=== PATIENT | female | born 1970 ===

== ENCOUNTER 2018-05-26 18:43 | Inpatient (IN) | payer OTHER, SELFPAY ==
[2018-05-26] VITALS (17 sets, daily range): BP systolic 110–125; BP diastolic 65–77; PULSE 97–110; RESP 16; TEMP 37–37.3; O2SAT 97–100
--- NOTE | 2018-05-26 19:21 | ED.GENADUL_ITS ---
Discharge Plan Disposition Patient Disposition: [facility] INPATIENT Condition: Good Discharge Details Chief Complaint: Abd Prob Clinical Impression: Appendicitis, acute Reason For Visit: ACUTE APPENDICITIS Admit Date/Time: 05/27/18 00:14 Admit Provider: Dustin Chapa III Attending Provider: Dustin Chapa III Primary Care Provider: Licha,Local ED Provider: Cleveland Beltran Discharge Data Discharge Date/Time-TO BE ENTERED AT DEPARTURE: 05/27/18 02:36 Medical Decision Making <Dawit Berkowitz DO - Last Filed: 05/27/18 09:27> This is a 48-year-old female who presents for mild right lower quadrant pain for the last week. It is slowly gotten worse however she is eating and drinking well. She has had no diarrhea or vomiting, no systemic symptoms of fever or chills. Physical exam demonstrates minimal right lower quadrant tenderness. She is currently up visiting and not her normal home and certainly away from her regular care circles. Her obstetrics route rider supervisor did perform a exam within the last 4 days which demonstrated a benign vaginal exam and a negative urinalysis at that time down in [place]. With her continued and slightly worsening pain it was recommended that she come to the ER for further evaluation to rule out appendicitis. Physical exam is unalarming. Vital signs are reassuring aside from mild tachycardia which on reassessment demonstrate a heart rate in the 80s. Patient is requesting further imaging workup and I do think this is reasonable. We will get a CT scan to evaluate for any acute process. I feel her symptoms may be musculoskeletal in origin versus mild diverticulitis or very mild early appendicitis. We will get a urinalysis to evaluate for any acute signs of UTI. With no vaginal discharge or lower pelvic symptoms as well as the recent visit by her obstetrics route rider supervisor I do not think additional pelvic imaging is indicated at this time as her signs and symptoms are clinically inconsistent with ovarian torsion or an ovarian or uterine pathology. The case will be signed out to my colleague Dr. Beltran pending CT imaging results. HPI <Dawit Berkowitz DO - Last Filed: 05/27/18 09:27> General Date/Time Provider Initiated Documentation: 05/26/18 19:02 . HPI Narrative: This is a 48-year-old female who is visiting from [place], who presents today for evaluation of right lower quadrant abdominal pain. Patient states that for the last week she has had very mild right lower quadrant abdominal pain. It is sharp in nature and radiates slightly to the right upper quadrant. She has been able to eat and drink well without any associated nausea, vomiting, or diarrhea. She does have a mild achy sensation in her right upper quadrant. Symptoms are not worsened with food. Improved by nothing. She did see her obstetrics route rider supervisor 3 days ago who performed a bimanual and vaginal exam which were benign. Urinalysis at that time was also benign. Patient did have continuing worsening but very mild pain over the next few days, and her obstetrics route rider supervisor recommended she come in for further evaluation here in the ED. Patient denies any vaginal discharge, dysuria, hematuria, she does admit to some very mild urinary suprapubic pressure. She denies any other associated symptoms or complaints. Patient denies any previous abdominal surgeries, pertinent family history, IV or illicit drug use. Related Data Home Medications Medication Instructions Recorded Confirmed Unknown [No Known Home Meds] 05/26/18 05/26/18 Allergies Allergy/AdvReac Type Severity Reaction Status Date / Time No Known Allergies Allergy Unverified 05/26/18 19:00 General Stated Complaint: Abd Prob BRYAN: 3 Review of Systems <Dawit Berkowitz DO - Last Filed: 05/27/18 09:27> Review of Systems All systems reviewed & are unremarkable except as noted in HPI and below PFSH <Dawit Berkowitz DO - Last Filed: 05/27/18 09:27> Social History Smoking/Tobacco Use Status: Never Exam <Dawit Berkowitz DO - Last Filed: 05/27/18 09:27> Narrative Exam Narrative: 1.Const: Well-nourished, Well-developed, appearing stated age 2.Eyes: PERRL, no conjunctival injection, and symmetrical lids. 3.ENT: Atraumatic external nose and ears. Moist MM. Neck: Symmetric, trachea midline, No thyromegaly. 4.CVS: +S1/S2, No murmurs or gallops. Peripheral pulses 2+ and equal in all extremities. Brisk capillary refill in all extremities. 5.RESP: Unlabored respiratory effort. Clear to auscultation bilaterally. No wheezes rales or rhonchi 6.GI: Soft, Nondistended, No hepatosplenomegaly. No guarding or rebound. Mild pain in the right lower quadrant. She is negative Patel sign, negative obturator and psoas sign. No flank or CVA tenderness 7.MSK: Normocephalic/Atraumatic, Extremities w/o deformity or ttp No cyanosis or clubbing, Normal movement of all extremities 8.Skin: Warm, Dry. No rashes or lesions. 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 Sensation grossly intact, no focal neurologic deficits. 10.Psych: (AAO) x3. Appropriate mood and affect Course <Dawit Berkowitz DO - Last Filed: 05/27/18 09:27> Vital Signs Temperature 37.0 C 05/26/18 18:57 Pulse 110 H 05/26/18 18:57 Respiratory Rate 16 05/26/18 18:57 Blood Pressure 118/75 05/26/18 18:57 Pulse Oximetry 99 05/26/18 18:57 Temperature 37.0 C 05/26/18 18:57 Temperature Source Temporal Artery Scan 05/26/18 18:57 Pulse 110 H 05/26/18 18:57 Respiratory Rate 16 05/26/18 18:57 Blood Pressure 118/75 05/26/18 18:57 Blood Pressure Position Sitting 05/26/18 18:57 Pulse Oximetry 99 05/26/18 18:57 Oxygen Delivery Method Room Air 05/26/18 18:57 Oxygen Flow Rate 0 05/26/18 18:57 Pain Level 5 05/26/18 18:57 Sign Out <Dawit Berkowitz DO - Last Filed: 05/27/18 09:27> Sign Out Data: Sign Out Comment: pending CT results Last updated by Dawit Berkowitz DO at 05/26/18 20:34 Post-Handoff Eval: Patient signed out to me pending CT scan results. CT shows acute appendicitis without abscess or perforation. Patient made aware of findings. Case discussed with surgeon. Patient to be kept NPO, continue fluids and give dose of Invanz. Dr. Chapa to see.
[2018-05-26 19:37] LABS: Abs Immature Grans 0.02 k/cumm (0.0-0.09); Absolute Basophil Count 0.01 k/cumm (0.0-0.2); Absolute Eosinophil Count 0.13 k/cumm (0.0-0.7); Absolute Lymphocyte Count 1.17 k/cumm (1.2-3.4); Absolute Monocyte Count 0.86 k/cumm (0.11-0.7); Absolute Neutrophil Count 9.91 k/cumm (1.2-6.7); Basophils % 0.1; Eosinophils % 1.1; HCT 36.3 % (36.0-46.0); HGB 12.4 g/dL (12.0-15.5); Immature Grans % 0.2; Lymphocytes % 9.7; Mean Corp. HGB Concentration 34.2 g/dL (32.0-36.0); Mean Corpuscular Hemoglobin 29.6 pg (27.0-33.0); Mean Corpuscular Volume 86.6 fL (80-95); Monocytes % 7.1; Neutrophils % 81.8; Platelet Count 333 x1000/uL (130-400); RBC 4.19 m/cumm (4.00-5.20); RBC Distribution Width 12.3 % (11.7-14.6); White Blood Cell Count 12.11 k/cumm (4.4-10.8)
[2018-05-26] MEDS: Normal Saline 1,000 ML 1000 ML IV (19:55)
--- NOTE | 2018-05-26 19:55 | DI.CT_ITS ---
SYMPTOM/DIAGNOSIS: RLQ AND RUQ PAIN, ? APPENDIX OR GB PATHOLOGY ABDOMEN AND PELVIC CT: The appendix is dilated and shows surrounding inflammation. There is mild small bowel dilatation which may be reactive. There is a trace amount of free fluid. There is no evidence of an abscess or perforation. The bladder, uterus and ovaries are unremarkable. The lung bases are clear. The liver, gallbladder, spleen, pancreas, kidneys and adrenals appear normal. IMPRESSION: Acute appendicitis. Mild small bowel dilatation, likely representing reactive ileus.
[2018-05-26 20:01] LABS: Bilirubin Negative (Negative); Blood Negative (Negative); Clarity Clear; Glucose Negative (Negative); Ketones Negative (Negative); Leukocyte Esterase Negative (Negative); Nitrite Negative (Negative); Specific Gravity 1.015 (1.005-1.025); Urobilinogen 0.2 EU/dL (Up TO 0.2)
[2018-05-26 20:02] LABS: ALT 21 U/L (12-78); AST 9 U/L (15-37); Albumin 3.9 g/dL (3.4-5.0); Alkaline Phosphatase 70 U/L (46-116); Anion Gap 7.2 mmol/L (3-11); BUN 11 mg/dL (7-18); Bilirubin, Total 0.2 mg/dL (0.2-1.0); CO2 29.8 mmol/L (21.0-32.0); CREATININE 0.73 mg/dL (0.55-1.02); Calcium 9.2 mg/dL (8.5-10.1); Chloride 100 mmol/L (98-107); Glucose 95 mg/dL (70-100); Lipase 155 U/L (73-393); Potassium 3.5 mmol/L (3.5-5.1); Sodium 137 mmol/L (136-145); Total Protein 8.4 g/dL (6.4-8.2)
[2018-05-26] MEDS: Omnipaque 350 MG/ML 100 ML BTL IJ (20:53)
--- NOTE | 2018-05-26 21:29 | DI.VRAD_ITS ---
Addendum created by James Madrigal MD on 05/26/2018 9:31:40 PM EST Addendum: THIS REPORT CONTAINS FINDINGS THAT MAY BE CRITICAL TO PATIENT CARE. The findings were verbally communicated via telephone conference with Dr. Beltran at 9:31 PM EST on 05/26/2018. The findings were acknowledged and understood. Initial report created on 05/26/2018 9:28:58 PM EST EXAM: CT Abdomen and Pelvis With Contrast EXAM DATE/TIME: 05/26/2018 8:53 PM CLINICAL HISTORY: 48 years old, female; Pain; Other: Ruq and rlq pain; Patient HX: Rule out appendicitis/gb pathology TECHNIQUE: Axial computed tomography images of the abdomen and pelvis with intravenous contrast. All CT scans at this facility use at least one of these dose optimization techniques: automated exposure control; mA and/or kV adjustment per patient size (includes targeted exams where dose is matched to clinical indication); or iterative reconstruction. Coronal and sagittal reformatted images were created and reviewed. CONTRAST: 100 ml of Omnipaque 350 administered intravenously. COMPARISON: No relevant prior studies available. FINDINGS: The lung bases are clear. The visualized bony structures are unremarkable. There is no liver mass. There is no intrahepatic biliary dilatation. No gallstones are seen within the gallbladder. The pancreas is unremarkable. The spleen is unremarkable. There is no adrenal mass. There is no hydronephrosis. There are no renal calculi. There is no perinephric stranding. There is no renal mass. The ureters are normal in caliber. No calculi are seen along the course of the ureters. The aorta is normal in caliber. The IVC is normal in caliber. There is no retroperitoneal adenopathy. There is no mesenteric adenopathy. The stomach is unremarkable. The proximal small bowel appears normal. There is mild distention of the distal small bowel with fluid which may represent a mild ileus.. Feces is seen throughout the colon. There is no thickening of the wall of the ascending, transverse or descending colons. Within the pelvis: There is dilatation of the appendix measuring up to 17 mm. There is enhancement of the wall. There is moderate periappendiceal fat stranding. Findings are consistent with acute appendicitis. There is no abscess or perforation. There is a scant amount of free fluid within the pelvis. The bladder is unremarkable. The uterus is unremarkable. Small cysts are seen within the left adnexa. There is no inguinal adenopathy. There is no pelvic adenopathy. The rectosigmoid colon is unremarkable. IMPRESSION: 1. Acute appendicitis. No abscess or perforation. 2. Mild distal small bowel distention likely representing reactive ileus. 3. Small amount free fluid is seen within the pelvis. Dictated and Authenticated by: James Madrigal MD. Ordering:KORIN Pastor MD
[2018-05-26] MEDS: Lactated Ringers 1,000 ML 150 ML IV (22:19)
--- NOTE | 2018-05-26 22:59 | HPE_ITS ---
Date of service: 05/26/18 Time of Service: 22:55 Assessment and Plan (1) Acute right lower quadrant pain: Start date: 05/26/18 Start time: 22:58 Current visit: Yes Status: Acute ct scan (2) Leukocytosis (leucocytosis): Start date: 05/26/18 Start time: 22:58 Current visit: Yes Status: Acute start antibiotics (3) Acute appendicitis: Start date: 05/26/18 Start time: 22:58 Current visit: Yes Status: Acute lap rony poss open History of Present Illness Chief Complaint: right lower quadrant pain Narrative: pt pain started on maonday, she went to her obgyn and was cleared for any pathology at the time, driving up to [place] she cont to have pain and her doctor said to get to the ed for poss appy Review of Systems Review of Systems All systems reviewed & are unremarkable except as noted in HPI and below Gastrointestinal Reports as per HPI, Reports abdominal pain and Reports loose stools PFSH Social History Smoking/Tobacco Use Status: Never Meds Home Medications Medication Instructions Recorded Confirmed Type Unknown [No Known Home Meds] 05/26/18 05/26/18 History Allergies Allergy/AdvReac Type Severity Reaction Status Date / Time No Known Allergies Allergy Unverified 05/26/18 19:00 Exam GI Inspection: normal to inspection Palpation: soft and tender Percussion: normal to percussion Auscultation: normal bowel sounds Abdomen image: 1. pain Results Labs : 05/26/18 19:25 05/26/18 19:25 Laboratory Results - last 24 hr 05/26/18 05/26/18 05/26/18 19:25 19:25 19:40 WBC 12.11 H RBC 4.19 Hgb 12.4 Hct 36.3 MCV 86.6 MCH 29.6 MCHC 34.2 RDW 12.3 Plt Count 333 MPV 10.0 Immature Gran % 0.2 Neutrophils % 81.8 Lymphocytes % 9.7 Monocytes % 7.1 Eosinophils % 1.1 Basophils % 0.1 Absolute Neutrophils 9.91 H Absolute Lymphocytes 1.17 L Absolute Monocytes 0.86 H Absolute Eosinophils 0.13 Absolute Basophils 0.01 Sodium 137 Potassium 3.5 Chloride 100 Carbon Dioxide 29.8 Anion Gap 7.2 BUN 11 Creatinine 0.73 Estimated GFR/1.73 m2 >= 60.00 Glucose 95 Calcium 9.2 Total Bilirubin 0.2 AST 9 L ALT 21 Alkaline Phosphatase 70 Total Protein 8.4 H Albumin 3.9 Lipase 155 Urine Color Yellow Urine Clarity Clear Urine pH 8.0 Ur Specific [place] 1.015 Urine Protein Negative Urine Ketones Negative Urine Blood Negative Urine Nitrite Negative Urine Bilirubin Negative Urine Urobilinogen 0.2 Ur Leukocyte Esterase Negative Urine Glucose Negative Last Vital Signs Temp 37.0 C 05/26/18 18:57 Pulse 110 H 05/26/18 18:57 Resp 16 05/26/18 18:57 BP 118/75 05/26/18 18:57 Pulse Ox 99 05/26/18 18:57
[2018-05-27] VITALS (10 sets, daily range): BP systolic 106–127; BP diastolic 55–78; PULSE 74–99; RESP 9–17; TEMP 36.5–37.9; O2SAT 94–100
--- NOTE | 2018-05-27 01:23 | APP_PTH ---
PATIENT: MEHNAZ MOHAN LOC: U#:[id number] AGE/SX: 48/F ROOM: 214 RE05/26/[address]: Dustin Chapa III : 1970 BED: A DIS: 05/29/2018 SPEC #: [id number] RECD: 05/29/18 13:04 STATUS: EVA REStefan #: [id number] PIA: 05/27/18 01:[address]: Dustin Chapa III DEPT: Surgical Specimen RECD BY: Tiffanie Gregg ENTERED: 05/29/18 13:05 SP TYPE: Appendix OTHR DR: No Local Tissues: 1 - APPENDIX NOT INCIDENTAL Procedures: GROSS AND MICRO LEVEL 3 Comments: [id number]
[2018-05-27] MEDS: Lidocaine 1% Multi-Dose 50 ML VIAL (01:34)
--- NOTE | 2018-05-27 01:37 | W.PM.OP ---
Date of service: 05/27/18 Time of Service: 01:37 Operative Note DATE OF PROCEDURE: 05/27/18 PRE-OP DIAGNOSIS: acute appy POST-OP DIAGNOSIS: other (perforated appendix) PROCEDURE: Lap appy SURGEON: Dustin Chapa III ESTIMATED BLOOD LOSS: 15 PATHOLOGY: other Patient was transported to: PACU Patient's condition: stable Indications: acute rlq PAIN AND CT SHOWING ACUTE APPENDICITIS Findings: distended contained perforated appendix Procedure Description: pt brought to the or, placed supine on the operating table gen anesthesia time out done abd preped and draped in sterile fashion local given and infraumbilical incision and fascial incision entering the abd the trocar was inserted and the abd insuflated to 15 mm hg two 5mm ports placed under direct vision in the midline the base was exposed and walked down with graspers at the midway point there was a gush of puss and a clear opening into the lumen of the appendix the remander of the appendix was disected out and the bas identified a maryland disector was used and isolated the base and an endoGIA used to transect it, the artery was seen and a seperate clip was placed on it the meso appendix was transectwd with the endoGIA and the specimen placed in an endocatch bag the abdomen was washed out with 3 liters of saline the ports removed under direct vision the specimnen passed of the field the infraumbilical port was closed with 0 vicryl and monocryl the 5 mm port monocryl and dermabond more local given debreifing done pt spoken to post op
[2018-05-27] MEDS: Acetaminophen 325 MG TAB 650 MG PO (05:29)
[2018-05-27] MEDS: Lactated Ringers 1,000 ML 75 ML IV ×2 (05:50→19:24)
--- NOTE | 2018-05-27 07:29 | PDOC.CMIN ---
- If Service Date Differs Date of service: 05/27/18 Time of Service: 07:29 Care Management Initial Assess REASON FOR HOSPITALIZATION:: Appendicitis. PAST MEDICAL HISTORY/PAST SURGICAL HISTORY:: Leukocytosis. PREVIOUS FUNCTIONAL STATUS/SOCIAL/FAMILY SUPPORTS:: Grecia resides in [place] with her , Richie and their three children. Richie's family live in [place] and the family had been visiting when Grecia was admitted for a laparoscopic appendectomy early this morning. Grecia is independent with her ADLs and transportation and will be returning home to [place] when medically ready. CURRENT FUNCTIONAL STATUS:: Grecia is lying in bed with , Richie, at bedside when CM visits this morning. She is engaged in conversation and makes good eye contact. MD is discussing options for discharge and all agree that she should remain at the hospital overnight and discharge on Tuesday. Grecia reports that her children are having fun on the farm and that it makes sense to stay rather than go home and need to return. Grecia has requested that her medical records be forwarded to Dr. Lopez at [facility]; [address] [place] [address]. CM will see that that happens. Patient reports that she is feeling ok and would like to try oatmeal for breakfast. CM and MD advise her to take food as she is able and not rosado. CM ordered oatmeal from dietary. ADVANCE DIRECTIVES:: None on file at [facility]. Has patient been provided with information about the portal?: Yes Did the patient sign up for the portal?: No CODE STATUS:: Full Code INSURANCE COVERAGE / FINANCIAL ISSUES:: [facility] CURRENT HOME/COMMUNITY SERVICES/EQUIPMENT:: No current home or community services. No equipment. PRIMARY CARE PHYSICIAN:: No Local. Patient's PCP in [place] is Dr. Lopez. POTENTIAL DISCHARGE NEEDS:: Follow up appointment with PCP and/or surgical services. PATIENT/FAMILY EDUCATION NEEDS:: Discharge education, any limitations, and follow up plan of care. Ask Me Three discussion. ANTICIPATED BARRIERS TO DISCHARGE:: No anticipated barriers to discharge. TRANSPORTATION:: Grecia will transport via private vehicle with her , Richie. PLAN:: Grecia will discharge home when medically ready per MD. Anticipate patient will discharge with no services and follow up with her PCP. CM will continue to offer support to patient and care team regarding discharge planning and disposition.
--- NOTE | 2018-05-27 07:34 | INITIAL_ITS ---
- If Service Date Differs Date of service: 05/27/18 Time of Service: 07:29 Care Management Initial Assess REASON FOR HOSPITALIZATION:: Appendicitis. PAST MEDICAL HISTORY/PAST SURGICAL HISTORY:: Leukocytosis. PREVIOUS FUNCTIONAL STATUS/SOCIAL/FAMILY SUPPORTS:: Grecia resides in [place] with her , Richie and their three children. Richie's family live in [place] and the family had been visiting when Grecia was admitted for a laparoscopic appendectomy early this morning. Grecia is independent with her ADLs and transportation and will be returning home to [place] when medically ready. CURRENT FUNCTIONAL STATUS:: Grecia is lying in bed with , Richie, at bedside when CM visits this morning. She is engaged in conversation and makes good eye contact. MD is discussing options for discharge and all agree that she should remain at the hospital overnight and discharge on Tuesday. Grecia reports that her children are having fun on the farm and that it makes sense to stay rather than go home and need to return. Grecia has requested that her medical records be forwarded to Dr. Lopez at [facility]; [address] [place] [address]. CM will see that that happens. Patient reports that she is feeling ok and would like to try oatmeal for breakfast. CM and MD advise her to take food as she is able and not rosado. CM ordered oatmeal from dietary. ADVANCE DIRECTIVES:: None on file at [facility]. Has patient been provided with information about the portal?: Yes Did the patient sign up for the portal?: No CODE STATUS:: Full Code INSURANCE COVERAGE / FINANCIAL ISSUES:: [facility]. CURRENT HOME/COMMUNITY SERVICES/EQUIPMENT:: No current home or community services. No equipment. PRIMARY CARE PHYSICIAN:: No Local. Patient's PCP in [place] is Dr. Lopez. POTENTIAL DISCHARGE NEEDS:: Follow up appointment with PCP and/or surgical services. PATIENT/FAMILY EDUCATION NEEDS:: Discharge education, any limitations, and follow up plan of care. Ask Me Three discussion. ANTICIPATED BARRIERS TO DISCHARGE:: No anticipated barriers to discharge. TRANSPORTATION:: Grecia will transport via private vehicle with her , Richie. PLAN:: Grecia will discharge home when medically ready per MD. Anticipate patient will discharge with no services and follow up with her PCP. CM will continue to offer support to patient and care team regarding discharge planning and disposition.
--- NOTE | 2018-05-27 07:57 | PGE_ITS ---
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 and will poss dc this afternoon pt wanted records for doctors [place] Subjective Patient reports: no new complaints and pain is less Interval history since last seen: sp lap appy for contained perforated appendicitis Exam Const General: cooperative and healthy appearing Nutritional Appearance: well nourished GI Inspection: normal to inspection and incision Palpation: soft Percussion: normal to percussion Auscultation: hypoactive bowel sounds Other: pt incision CDI min distention pt has not gotten out of bed yet and has not voided yet Objective Objective Clinical Data: Abnormal lab results 05/26/18 05/26/18 Range/Units 19:25 19:25 WBC 12.11 H (4.4-10.8) k/cumm Absolute Neutrophils 9.91 H (1.2-6.7) k/cumm Absolute Lymphocytes 1.17 L (1.2-3.4) k/cumm Absolute Monocytes 0.86 H (0.11-0.7) k/cumm AST 9 L (15-37) U/L Total Protein 8.4 H (6.4-8.2) g/dL Vital Signs Temperature 36.9 C 05/27/18 02:46 Temperature Source Temporal Artery Scan 05/26/18 18:57 Pulse 93 H 05/27/18 02:46 Pulse Rhythm Regular 05/27/18 02:46 Respiratory Rate 17 05/27/18 02:46 Respiratory Effort Non-Labored 05/27/18 02:46 Respiratory Depth Normal 05/27/18 02:46 Respiratory Pattern Normal 05/27/18 02:46 Blood Pressure 107/55 L 05/27/18 02:46 Blood Pressure Mean 80 05/26/18 23:30 Blood Pressure Position Sitting 05/26/18 18:57 Pulse Oximetry 95 05/27/18 02:46 Respiratory End-tidal CO2 36 05/27/18 02:30 Oxygen Delivery Method Room Air 05/27/18 02:46 Oxygen Flow Rate 0 05/27/18 02:46 Pain Level 5 05/27/18 05:29 Intake & Output 05/26/18 05/26/18 05/27/18 11:59 23:59 11:59 Intake Total 1300 / 1300 Balance 1300 / 1300 Weight 59.874 kg 59.874 kg Intake: IV 1000 / 1000 Oral 300 / 300 Other: Emesis Description None Laboratory Results WBC 12.11 k/cumm (4.4-10.8) H 05/26/18 19:25 RBC 4.19 m/cumm (4.00-5.20) 05/26/18 19:25 Hgb 12.4 g/dL (12.0-15.5) 05/26/18 19:25 Hct 36.3 % (36.0-46.0) 05/26/18 19:25 MCV 86.6 fL (80-95) 05/26/18 19:25 MCH 29.6 pg (27.0-33.0) 05/26/18 19:25 MCHC 34.2 g/dL (32.0-36.0) 05/26/18 19:25 RDW 12.3 % (11.7-14.6) 05/26/18 19:25 Plt Count 333 x1000/uL (130-400) 05/26/18 19:25 MPV 10.0 fL (8.0-11.0) 05/26/18 19:25 Immature Gran % 0.2 05/26/18 19:25 Neutrophils % 81.8 05/26/18 19:25 Lymphocytes % 9.7 05/26/18 19:25 Monocytes % 7.1 05/26/18 19:25 Eosinophils % 1.1 05/26/18 19:25 Basophils % 0.1 05/26/18 19:25 Absolute Neutrophils 9.91 k/cumm (1.2-6.7) H 05/26/18 19:25 Absolute Lymphocytes 1.17 k/cumm (1.2-3.4) L 05/26/18 19:25 Absolute Monocytes 0.86 k/cumm (0.11-0.7) H 05/26/18 19:25 Absolute Eosinophils 0.13 k/cumm (0.0-0.7) 05/26/18 19:25 Absolute Basophils 0.01 k/cumm (0.0-0.2) 05/26/18 19:25 Sodium 137 mmol/L (136-145) 05/26/18 19:25 Potassium 3.5 mmol/L (3.5-5.1) 05/26/18 19:25 Chloride 100 mmol/L (98-107) 05/26/18 19:25 Carbon Dioxide 29.8 mmol/L (21.0-32.0) 05/26/18 19:25 Anion Gap 7.2 mmol/L (3-11) 05/26/18 19:25 BUN 11 mg/dL (7-18) 05/26/18 19:25 Creatinine 0.73 mg/dL (0.55-1.02) 05/26/18 19:25 Estimated GFR/1.73 m2 >= 60.00 (mL/min/1.73m2) 05/26/18 19:25 Glucose 95 mg/dL (70-100) 05/26/18 19:25 Calcium 9.2 mg/dL (8.5-10.1) 05/26/18 19:25 Total Bilirubin 0.2 mg/dL (0.2-1.0) 05/26/18 19:25 AST 9 U/L (15-37) L 05/26/18 19:25 ALT 21 U/L (12-78) 05/26/18 19:25 Alkaline Phosphatase 70 U/L (46-116) 05/26/18 19:25 Total Protein 8.4 g/dL (6.4-8.2) H 05/26/18 19:25 Albumin 3.9 g/dL (3.4-5.0) 05/26/18 19:25 Lipase 155 U/L (73-393) 05/26/18 19:25 Urine Color Yellow (Yellow) 05/26/18 19:40 Urine Clarity Clear 05/26/18 19:40 Urine pH 8.0 (5-8) 05/26/18 19:40 Ur Specific [place] 1.015 (1.005-1.025) 05/26/18 19:40 Urine Protein Negative mg/dL (Negative) 05/26/18 19:40 Urine Ketones Negative mg/dL (Negative) 05/26/18 19:40 Urine Blood Negative (Negative) 05/26/18 19:40 Urine Nitrite Negative (Negative) 05/26/18 19:40 Urine Bilirubin Negative (Negative) 05/26/18 19:40 Urine Urobilinogen 0.2 EU/dL (Up TO 0.2) 05/26/18 19:40 Ur Leukocyte Esterase Negative (Negative) 05/26/18 19:40 Urine Glucose Negative mg/dL (Negative) 05/26/18 19:40
[2018-05-27] MEDS: Ketorolac 15 MG/ML VIAL IVP ×2 (10:13→21:16)
[2018-05-27] MEDS: Normal Saline Flush 10 ML SYR IVP ×2 (10:13→21:13)
[2018-05-28 03:26] VITALS: BP 103/70; PULSE 89; RESP 18; TEMP 37.9; O2SAT 99
[2018-05-28 04:49] VITALS: TEMP 37.5
--- NOTE | 2018-05-28 07:42 | W.PM.DS.N ---
Date of service: 05/28/18 Time of Service: 07:42 DS: Diagnosis Discharge Diagnosis (1) Acute appendicitis: Status: Acute (2) Perforated appendicitis: Status: Acute Discharge Plan Disposition Patient Disposition: HOME Condition: Stable Discharge Details Chief Complaint: Abd Prob Clinical Impression: Appendicitis, acute Reason For Visit: ACUTE APPENDICITIS Admit Date/Time: 05/27/18 00:14 Admit Provider: Dustin Chapa III Attending Provider: Dustin Chapa III Primary Care Provider: Licha,Local ED Provider: Cleveland Beltran [facility] Course Hospital Course: pt presented 5 days after her pain started. Her ct and physical exam showed acute appendicitis. She was taken to the or and a contained perforation was found and a successful lap appy was preformed. the pt recoverd for 24 hours in the hospital with min pain she tolerated a small diet. she will fu in ct for postop Home Meds and New Rx's Prescriptions: No Action No Known Home Meds RF: 0 Discharge Instructions Referrals: Cony Pena PA [PHYSICIANS OUTREACH CONSULTANT] - 06/05/18 8:00 am Activity:: Activity as Tolerated Equipment/Supplies:: none Diet:: As Tolerated DS: Summary Status at Discharge Functional status at discharge: independent ambulation Overall status at discharge: patient is back to baseline Time Spent with Patient Greater than 30 minutes Exam GI Inspection: normal to inspection and distended (improved) Palpation: soft Percussion: normal to percussion Auscultation: normal bowel sounds DS: Data Vitals/I&O Vitals and I&O: Vital Signs Temperature 37.5 C 05/28/18 04:49 Temperature Source Tympanic 05/28/18 04:49 Pulse 89 05/28/18 03:26 Pulse Rhythm Regular 05/27/18 21:08 Respiratory Rate 18 05/28/18 03:26 Respiratory Effort Non-Labored 05/27/18 21:08 Respiratory Depth Normal 05/27/18 21:08 Respiratory Pattern Normal 05/27/18 21:08 Blood Pressure 103/70 05/28/18 03:26 Blood Pressure Mean 80 05/26/18 23:30 Blood Pressure Position Sitting 05/26/18 18:57 Pulse Oximetry 99 05/28/18 03:26 Respiratory End-tidal CO2 36 05/27/18 02:30 Oxygen Delivery Method Room Air 05/28/18 03:26 Oxygen Flow Rate 0 05/28/18 03:26 Pain Level 4 05/28/18 03:26 Intake & Output 05/27/18 05/27/18 05/28/18 11:59 23:59 11:59 Intake Total 1330 / 3810 2480 / 3810 250 / 250 Balance 1330 / 3810 2480 / 3810 250 / 250 Weight 59.874 kg Intake: IV 1030 / 3270 2240 / 3270 Oral 300 / 540 240 / 540 250 / 250 Other: Urine Appearance Clear Clear Comment Void x 1 in toilet pt gets up to void AD RASTA. Emesis Description None Voiding Methods Toilet Toilet [facility] Medical History Acute appendicitis (Acute) Leukocytosis (leucocytosis) (Acute) Acute right lower quadrant pain (Acute) Social History Smoking/Tobacco Use Status: Never
--- NOTE | 2018-05-28 07:49 | DSE_ITS ---
Date of service: 05/28/18 Time of Service: 07:42 DS: Diagnosis Discharge Diagnosis (1) Acute appendicitis: Status: Acute (2) Perforated appendicitis: Status: Acute Discharge Plan Disposition Patient Disposition: HOME Condition: Stable Discharge Details Chief Complaint: Abd Prob Clinical Impression: Appendicitis, acute Reason For Visit: ACUTE APPENDICITIS Admit Date/Time: 05/27/18 00:14 Admit Provider: Dustin Chapa III Attending Provider: Dustin Chapa III Primary Care Provider: Licha,Local ED Provider: Cleveland Beltran [facility] Course Hospital Course: pt presented 5 days after her pain started. Her ct and physical exam showed acute appendicitis. She was taken to the or and a contained perforation was found and a successful lap appy was preformed. the pt recoverd for 24 hours in the hospital with min pain she tolerated a small diet. she will fu in ct for postop Home Meds and New Rx's Prescriptions: No Action No Known Home Meds RF: 0 Discharge Instructions Referrals: Cony Pena PA [PHYSICIANS MANAGER FORMS] - 06/05/18 8:00 am Activity:: Activity as Tolerated Equipment/Supplies:: none Diet:: As Tolerated DS: Summary Status at Discharge Functional status at discharge: independent ambulation Overall status at discharge: patient is back to baseline Time Spent with Patient Greater than 30 minutes Exam GI Inspection: normal to inspection and distended (improved) Palpation: soft Percussion: normal to percussion Auscultation: normal bowel sounds DS: Data Vitals/I&O Vitals and I&O: Vital Signs Temperature 37.5 C 05/28/18 04:49 Temperature Source Tympanic 05/28/18 04:49 Pulse 89 05/28/18 03:26 Pulse Rhythm Regular 05/27/18 21:08 Respiratory Rate 18 05/28/18 03:26 Respiratory Effort Non-Labored 05/27/18 21:08 Respiratory Depth Normal 05/27/18 21:08 Respiratory Pattern Normal 05/27/18 21:08 Blood Pressure 103/70 05/28/18 03:26 Blood Pressure Mean 80 05/26/18 23:30 Blood Pressure Position Sitting 05/26/18 18:57 Pulse Oximetry 99 05/28/18 03:26 Respiratory End-tidal CO2 36 05/27/18 02:30 Oxygen Delivery Method Room Air 05/28/18 03:26 Oxygen Flow Rate 0 05/28/18 03:26 Pain Level 4 05/28/18 03:26 Intake & Output 05/27/18 05/27/18 05/28/18 11:59 23:59 11:59 Intake Total 1330 / 3810 2480 / 3810 250 / 250 Balance 1330 / 3810 2480 / 3810 250 / 250 Weight 59.874 kg Intake: IV 1030 / 3270 2240 / 3270 Oral 300 / 540 240 / 540 250 / 250 Other: Urine Appearance Clear Clear Comment Void x 1 in toilet pt gets up to void AD RASTA. Emesis Description None Voiding Methods Toilet Toilet [facility] Medical History Acute appendicitis (Acute) Leukocytosis (leucocytosis) (Acute) Acute right lower quadrant pain (Acute) Social History Smoking/Tobacco Use Status: Never
[2018-05-28 07:51] VITALS: BP 121/77; PULSE 101; RESP 18; TEMP 37.4; O2SAT 99
--- NOTE | 2018-05-28 08:05 | PGE_ITS ---
Date of Service Date of service: 05/28/18 Time of Service: 08:01 Assessment and Plan (1) Perforated appendicitis: Start date: 05/28/18 Start time: 08:03 Current visit: Yes Status: Acute she is progressing slowly but is appropriate she paulino a small diet pain is improved but still present spoke to he about poss abscess developing present patient feels additional day will help and agree Subjective Patient reports: pain is less Interval history since last seen: slowly improving Exam GI Inspection: normal to inspection and distended Palpation: soft Percussion: normal to percussion Auscultation: normal bowel sounds Objective Objective Clinical Data: Vital Signs Temperature 37.4 C 05/28/18 07:51 Temperature Source Tympanic 05/28/18 07:51 Pulse 101 H 05/28/18 07:51 Pulse Rhythm Regular 05/27/18 21:08 Respiratory Rate 18 05/28/18 07:51 Respiratory Effort Non-Labored 05/27/18 21:08 Respiratory Depth Normal 05/27/18 21:08 Respiratory Pattern Normal 05/27/18 21:08 Blood Pressure 121/77 05/28/18 07:51 Blood Pressure Mean 80 05/26/18 23:30 Blood Pressure Position Sitting 05/26/18 18:57 Pulse Oximetry 99 05/28/18 07:51 Respiratory End-tidal CO2 36 05/27/18 02:30 Oxygen Delivery Method Room Air 05/28/18 07:51 Oxygen Flow Rate 0 05/28/18 07:51 Pain Level 4 05/28/18 07:51 Comment 05/28/18 07:51 Intake & Output 05/27/18 05/27/18 05/28/18 11:59 23:59 11:59 Intake Total 1330 / 3810 2480 / 3810 250 / 250 Balance 1330 / 3810 2480 / 3810 250 / 250 Weight 59.874 kg Intake: IV 1030 / 3270 2240 / 3270 Oral 300 / 540 240 / 540 250 / 250 Other: Urine Appearance Clear Clear Comment Void x 1 in toilet pt gets up to void AD RASTA. Emesis Description None Voiding Methods Toilet Toilet Laboratory Results WBC 12.11 k/cumm (4.4-10.8) H 05/26/18 19:25 RBC 4.19 m/cumm (4.00-5.20) 05/26/18 19:25 Hgb 12.4 g/dL (12.0-15.5) 05/26/18 19:25 Hct 36.3 % (36.0-46.0) 05/26/18 19:25 MCV 86.6 fL (80-95) 05/26/18 19:25 MCH 29.6 pg (27.0-33.0) 05/26/18 19:25 MCHC 34.2 g/dL (32.0-36.0) 05/26/18 19:25 RDW 12.3 % (11.7-14.6) 05/26/18 19:25 Plt Count 333 x1000/uL (130-400) 05/26/18 19:25 MPV 10.0 fL (8.0-11.0) 05/26/18 19:25 Immature Gran % 0.2 05/26/18 19:25 Neutrophils % 81.8 05/26/18 19:25 Lymphocytes % 9.7 05/26/18 19:25 Monocytes % 7.1 05/26/18 19:25 Eosinophils % 1.1 05/26/18 19:25 Basophils % 0.1 05/26/18 19:25 Absolute Neutrophils 9.91 k/cumm (1.2-6.7) H 05/26/18 19:25 Absolute Lymphocytes 1.17 k/cumm (1.2-3.4) L 05/26/18 19:25 Absolute Monocytes 0.86 k/cumm (0.11-0.7) H 05/26/18 19:25 Absolute Eosinophils 0.13 k/cumm (0.0-0.7) 05/26/18 19:25 Absolute Basophils 0.01 k/cumm (0.0-0.2) 05/26/18 19:25 Sodium 137 mmol/L (136-145) 05/26/18 19:25 Potassium 3.5 mmol/L (3.5-5.1) 05/26/18 19:25 Chloride 100 mmol/L (98-107) 05/26/18 19:25 Carbon Dioxide 29.8 mmol/L (21.0-32.0) 05/26/18 19:25 Anion Gap 7.2 mmol/L (3-11) 05/26/18 19:25 BUN 11 mg/dL (7-18) 05/26/18 19:25 Creatinine 0.73 mg/dL (0.55-1.02) 05/26/18 19:25 Estimated GFR/1.73 m2 >= 60.00 (mL/min/1.73m2) 05/26/18 19:25 Glucose 95 mg/dL (70-100) 05/26/18 19:25 Calcium 9.2 mg/dL (8.5-10.1) 05/26/18 19:25 Total Bilirubin 0.2 mg/dL (0.2-1.0) 05/26/18 19:25 AST 9 U/L (15-37) L 05/26/18 19:25 ALT 21 U/L (12-78) 05/26/18 19:25 Alkaline Phosphatase 70 U/L (46-116) 05/26/18 19:25 Total Protein 8.4 g/dL (6.4-8.2) H 05/26/18 19:25 Albumin 3.9 g/dL (3.4-5.0) 05/26/18 19:25 Lipase 155 U/L (73-393) 05/26/18 19:25 Urine Color Yellow (Yellow) 05/26/18 19:40 Urine Clarity Clear 05/26/18 19:40 Urine pH 8.0 (5-8) 05/26/18 19:40 Ur Specific [place] 1.015 (1.005-1.025) 05/26/18 19:40 Urine Protein Negative mg/dL (Negative) 05/26/18 19:40 Urine Ketones Negative mg/dL (Negative) 05/26/18 19:40 Urine Blood Negative (Negative) 05/26/18 19:40 Urine Nitrite Negative (Negative) 05/26/18 19:40 Urine Bilirubin Negative (Negative) 05/26/18 19:40 Urine Urobilinogen 0.2 EU/dL (Up TO 0.2) 05/26/18 19:40 Ur Leukocyte Esterase Negative (Negative) 05/26/18 19:40 Urine Glucose Negative mg/dL (Negative) 05/26/18 19:40
--- NOTE | 2018-05-28 08:51 | PDOC.CMPRO ---
- If Service Date Differs Date of service: 05/28/18 Time of Service: 08:51 Care Management Progress Note S/O: Grecia is lying in bed when CM visits this morning. She is engaged in conversation and makes eye contact. Grecia's is at bedside and has just stepped out for coffee. Anticipated patient would be discharging home today, however Grecia reports continuous pain and per MD note, there is a possibility of abcess development. Grecia is tolerating a small diet well and requests pain medication. RN Tomasa aware. Grecia reports that she is ok staying another day and that her mother is coming to [place] from [place] to bring her children home should she need to stay at [facility] much longer. She is ok with the proposition of staying, reporting that there is no reason for her to return home at this point as she is not able to help out or do anything. A: 48 year old female admitted for a lap appy on 05/27/18. P: Grecia will discharge when medically ready per MD. Anticipate patient will discharge with no services and follow up with her PCP. CM will fax Grecia's medical records to her PCP in [place] per her request. (Dr. Lopez, [facility], [address] [place] [address]). Grecia will transport via private vehicle with her , Richie. CM will continue to offer support to patient, family, and care team regarding discharge planning and disposition.
--- NOTE | 2018-05-28 08:57 | CMPROGNOTE_ITS ---
- If Service Date Differs Date of service: 05/28/18 Time of Service: 08:51 Care Management Progress Note S/O: Grecia is lying in bed when CM visits this morning. She is engaged in conversation and makes eye contact. Grecia's is at bedside and has just stepped out for coffee. Anticipated patient would be discharging home today, however Grecia reports continuous pain and per MD note, there is a possibility of abcess development. Grecia is tolerating a small diet well and requests pain medication. RN Tomasa aware. Grecia reports that she is ok staying another day and that her mother is coming to [place] from [place] to bring her children home should she need to stay at [facility] much longer. She is ok with the proposition of staying, reporting that there is no reason for her to return home at this point as she is not able to help out or do anything. A: 48 year old female admitted for a lap appy on 05/27/18. P: Grecia will discharge when medically ready per MD. Anticipate patient will discharge with no services and follow up with her PCP. CM will fax Grecia's medical records to her PCP in [place] per her request. (Dr. Lopez, [facility], [address] [place] [address]). Grecia will transport via private vehicle with her , Richie. CM will continue to offer support to patient, family, and care team regarding discharge planning and disposition.
[2018-05-28] MEDS: Ketorolac 15 MG/ML VIAL IVP ×2 (09:07→15:54)
[2018-05-28] MEDS: Lactated Ringers 1,000 ML 75 ML IV ×2 (09:08→21:32)
[2018-05-28] MEDS: Normal Saline Flush 10 ML SYR IVP ×2 (09:08→15:55)
[2018-05-28 11:07] VITALS: BP 106/68; PULSE 94; RESP 20; TEMP 37.4; O2SAT 97
[2018-05-28] MEDS: Acetaminophen 325 MG TAB 650 MG PO ×2 (13:00→19:47)
[2018-05-28 15:53] VITALS: BP 125/88; PULSE 95; RESP 22; TEMP 36.2; O2SAT 96
[2018-05-28 19:55] VITALS: BP 107/69; PULSE 91; RESP 16; TEMP 37.5; O2SAT 99
[2018-05-29] MEDS: Ketorolac 15 MG/ML VIAL IVP (00:08)
[2018-05-29 00:13] VITALS: BP 103/68; PULSE 91; RESP 16; TEMP 37.3; O2SAT 98
[2018-05-29 07:45] VITALS: BP 118/74; PULSE 92; RESP 20; TEMP 38; O2SAT 99
[2018-05-29 08:05] VITALS: TEMP 38
[2018-05-29] MEDS: Acetaminophen 325 MG TAB 650 MG PO (08:05)
[2018-05-29 10:04] VITALS: TEMP 36.7
--- NOTE | 2018-05-29 11:14 | PDOC.CMDIS ---
- If Service Date Differs Date of service: 05/29/18 Time of Service: 11:14 LACE Index Scoring Tool - Questions: Length of Stay (in days): 2 Acuity (Admit via E.D.?): Yes E.D. Visits: 1 - Answers: Total Score: 6 Risk of Readmission: Low Risk Care Management Discharge Reason for Hospitalization: Appendicitis. Discharge Plan: Grecia will return home today with no services. She will F/U with PCP and plan of care as prescribed. Grecia's Richie to transport her. Patient/Family Education Needs: Review DC instructions, any limitations, and discuss 'Ask Me Three'
--- NOTE | 2018-05-29 14:21 | DSE_ITS ---
Documented by User: PATIENCE Gomez 05/29/18 14:30 Date of service: 05/29/18 Time of Service: 08:00 DS: Diagnosis Discharge Diagnosis (1) Perforated appendicitis: Status: Resolved Discharge Plan Disposition Patient Disposition: HOME Condition: Stable Discharge Details Chief Complaint: Abd Prob Reason For Visit: ACUTE APPENDICITIS Admit Date/Time: 05/26/18 22:59 Admit Provider: Dustin Chapa III Attending Provider: Dustin Chapa III Primary Care Provider: Licha,[facility] ED Provider: Cleveland Beltran [facility] Course Hospital Course: The patient presented to the ER with complaints of a 5 day history of lower abdominal pain that has now localized to the RLQ. She was worked up by her HOSPITAL NURSE LIAISON in [place] with negative pathology. She drove to [place] and continued to have lower abdominal pain that localized to the RLQ. Her CT scan and physical exam showed acute appendicitis. She was taken to the OR and a contained perforation was found and a successful lap appy was performed. The pt recoverd for 48 hours in the hospital with minimal pain. She was tolerating a normal diet. She will have in post-op follow up in [place]. Home Meds and New Rx's Prescriptions: New acetaminophen [Tylenol] 325 mg Tablet 650 mg PO Q6H PRN PRNQty: 0 RF: 0 tramadol 50 mg Tablet 50 mg PO Q6H PRN PRNQty: 7 RF: 0 ibuprofen 200 mg capsule 600 mg PO QID PRN (Reason: inguinal hernia repair) Qty: 30 RF: 0 amoxicillin-pot clavulanate 875-125 mg tablet 1 tab PO BID Qty: 11 RF: 0 No Action No Known Home Meds RF: 0 Discharge Instructions Instructions: Laparoscopic Appendectomy (DC) Stand Alone Forms: Nursing Discharge Form Activity:: see instructions Equipment/Supplies:: none Diet:: As Tolerated Discharge Orders Discharge Orders: Discharge Order (Routine); Ordered 05/29/18 Ordered By: Jaspreet Carcamo Discharge Data Discharge Date/Time-TO BE ENTERED AT DEPARTURE: 05/29/18 10:37 DS: Summary Status at Discharge Functional status at discharge: independent ambulation Overall status at discharge: patient is progressing back to baseline Time Spent with Patient Less than 30 minutes Exam Const General: cooperative, healthy appearing and comfortable Orientation: alert and oriented x3 Resp Effort & Inspection: normal respiratory effort and no audible wheezes GI Inspection: normal to inspection and incision (No erythema, swelling or tenderness surrounding incision sites.) Palpation: soft, guarding and nontender Auscultation: normal bowel sounds DS: Data Vitals/I&O Vitals and I&O: Vital Signs Temperature 36.7 C 05/29/18 10:04 Temperature Source Tympanic 05/29/18 10:04 Pulse 92 H 05/29/18 07:45 Pulse Rhythm Regular 05/29/18 07:23 Respiratory Rate 20 05/29/18 07:45 Respiratory Effort Non-Labored 05/29/18 07:23 Respiratory Depth Normal 05/29/18 07:23 Respiratory Pattern Normal 05/29/18 07:23 Blood Pressure 118/74 05/29/18 07:45 Blood Pressure Mean 80 05/26/18 23:30 Blood Pressure Position Sitting 05/26/18 18:57 Pulse Oximetry 99 05/29/18 07:45 Respiratory End-tidal CO2 36 05/27/18 02:30 Oxygen Delivery Method Room Air 05/29/18 07:45 Oxygen Flow Rate 0 05/29/18 07:45 Pain Level 2 05/29/18 08:05 Comment 05/29/18 07:48 Intake & Output 05/28/18 05/29/18 05/29/18 23:59 11:59 23:59 Intake Total 1510 / 2825 1727.5 / 1727.5 Balance 1510 / 2825 1727.5 / 1727.5 Intake: IV 1030 / 1845 937.5 / 937.5 Oral 480 / 980 790 / 790 Other: Urine Color Yellow Urine Appearance Clear Urine Odor None Comment Void x1 in the toilet. Stool Size Small Stool Characteristics Soft Formed Brown Voiding Methods Toilet [facility] Medical History Acute appendicitis (Acute) Leukocytosis (leucocytosis) (Acute) Acute right lower quadrant pain (Acute) Social History Smoking/Tobacco Use Status: Never Documented by User: Jaspreet Carcamo DO 05/30/18 20:38 DS: Diagnosis Discharge Diagnosis (1) Perforated appendicitis: Status: Resolved Discharge Plan Disposition Patient Disposition: HOME Condition: Stable Discharge Details Chief Complaint: Abd Prob Reason For Visit: ACUTE APPENDICITIS Admit Date/Time: 05/26/18 22:59 Admit Provider: Dustin Chapa III Attending Provider: Dustin Chapa III Primary Care Provider: Licha,Local ED [facility] Course: The patient presented to the ER with complaints of a 5 day history of lower abdominal pain that has now localized to the RLQ. She was worked up by her HOSPITAL NURSE LIAISON in [place] with negative pathology. She drove to [place] and continued to have lower abdominal pain that localized to the RLQ. Her CT scan and physical exam showed acute appendicitis. She was taken to the OR and a contained perforation was found and a successful lap appy was performed. The pt recoverd for 48 hours in the hospital with minimal pain. She was tolerating a normal diet. She will have in post-op follow up in [place]. Home Meds and New Rx's Prescriptions: New acetaminophen [Tylenol] 325 mg Tablet 650 mg PO Q6H PRN PRNQty: 0 RF: 0 tramadol 50 mg Tablet 50 mg PO Q6H PRN PRNQty: 7 RF: 0 ibuprofen 200 mg capsule 600 mg PO QID PRN (Reason: inguinal hernia repair) Qty: 30 RF: 0 amoxicillin-pot clavulanate 875-125 mg tablet 1 tab PO BID Qty: 11 RF: 0 No Action No Known Home Meds RF: 0 Discharge Instructions Instructions: Laparoscopic Appendectomy (DC) Stand Alone Forms: Nursing Discharge Form Activity:: see instructions Equipment/Supplies:: none Diet:: As Tolerated Discharge Orders Discharge Orders: Discharge Order (Routine); Ordered 05/29/18 Ordered By: Jaspreet Carcamo Discharge Data Discharge Date/Time-TO BE ENTERED AT DEPARTURE: 05/29/18 10:37 [facility] Medical History Acute appendicitis (Acute) Leukocytosis (leucocytosis) (Acute) Acute right lower quadrant pain (Acute) Social History Smoking/Tobacco Use Status: Never
== END 2018-05-29 10:37 | disposition home or self-care (01) | DRG 340 ==
LOC: ER 23:15 → MS 05-27 05:08 → ER 05-29 09:45 → MS 05-29 09:48
PROVIDERS: Student in an Organized Health Care Education/Training Program; Admitting Provider Surgery; Emergency Provider Emergency Medicine; Visit Provider Surgery
PROC: 0DTJ4ZZ Resection of Appendix, Percutaneous Endoscopic Approach (ICD-10-PCS; CPT 44970; principal; 2018-05-26 23:05)
DX: K35.32 Acute appendicitis with perforation, localized peritonitis, and gangrene, without abscess (principal)
CPT/HCPCS: 44970; 36415; 80053; 81025; 83690; 96361; 96365; 96375; 99222; 99285; NC; 74177; 81003; 85025; 88304; J1100; J1335; J1885; J2250; J2405; J3490